=== PATIENT | male | born 1990 | race Caucasian/White ===

== ENCOUNTER 2017-02-24 21:10 | Emergency (ER) | payer SELFPAY ==
[~2017-02-24] VITALS: Ht 180.3 cm; Wt 183.0 kg
[2017-02-24] MEDS ORDERED: IBUP1CAP11 PO (21:21)
[2017-02-24] MEDS ORDERED: PSEU60 PO (21:21)
[2017-02-24] MEDS ORDERED: AMOX500C2 PO (21:22)
[2017-02-24] MEDS: ONDANSETRON HCL 4 MG/2 ML VIAL IVP ONE (23:04)
[2017-02-24] MEDS: HYDROmorphone 2 MG/ML SYRINGE IVP ONE (23:04)
[2017-02-24 23:17] LABS: BASOPHILS # (AUTO) 0.02 K/uL (0.00-0.20); BASOPHILS % (AUTO) 0.1 % (0.0-2.0); EOSINOPHILS % (AUTO) 1.46 % (1.0-6.0); HEMATOCRIT 41.1 % (41-53); LYMPHOCYTES # (AUTO) 1.1 K/uL (1.0-4.8); LYMPHOCYTES % (AUTO) 8.2 % (22.0-44.0); MEAN CORPUSCULAR HGB CONC 34.2 G/dL (31.0-37.0); MEAN CORPUSCULAR VOLUME 94 fL (80-100); MONOCYTES # (AUTO) 1.2 K/uL (0.1-1.0); MONOCYTES % (AUTO) 8.8 % (2.0-9.0); NEUTROPHILS % (AUTO) 81.5 % (40.0-70.0); PLATELET COUNT (AUTO) 282 K/uL (150-450); RED BLOOD CELL COUNT(AUTO) 4.39 MIL/uL (4.50-5.90); RED CELL DISTRIBUTION WIDTH 12.9 % (11.5-14.5)
[2017-02-24 23:22] LABS: ANION GAP 8 mmol/L (8-16); CARBON DIOXIDE 30 mmol/L (22-29); CHLORIDE 102 mmol/L (98-107); CREATININE 1.05 mg/dL (0.60-1.30); GLOMERULAR FILTR. RATE CALC > 60 mL/min (>60); GLUCOSE,RANDOM 106 mg/dL (70-110); POTASSIUM 3.5 mmol/L (3.5-5.1); SODIUM SERUM 140 mmol/L (136-145); UREA NITROGEN, BLOOD 6 mg/dL (7-18)
[2017-02-25] MEDS: HYDROmorphone 2 MG/ML SYRINGE IVP ONE ×2 (00:39→03:32)
[2017-02-25] MEDS: CefTRIAXone SODIUM 2 GM in DEXTROSE 5%-WATER 20 ML IV ONE (01:22)
[2017-02-25 03:22] VITALS: BP 130/87
== END 2017-02-25 03:35 | disposition home or self-care (01) ==
LOC: EMS 21:12
DX: L03.211 Cellulitis of face (principal)
CPT/HCPCS: 36415; 70486; 80048; 85025; 96374; 96375; 96376; 99285; J0696; J1170 ×2; J2405; J7060